=== PATIENT | male | born 1950 | race Caucasian/White ===

== ENCOUNTER 2018-12-12 12:31 | Emergency (ER) | payer MEDICARE ==
[~2018-12-12] VITALS: Ht 172.7 cm; Wt 90.0 kg
[2018-12-12] MEDS ORDERED: LISINOP/HCTZ1 TA2 PO (12:57)
[2018-12-12] MEDS ORDERED: METFORMIN HCL1000 MG PO (12:57)
[2018-12-12] MEDS ORDERED: GLIPIZIDE ER5 M1 PO (12:57)
[2018-12-12 14:10] VITALS: BP 129/74
== END 2018-12-12 14:10 | disposition home or self-care (01) ==
LOC: ED 12:31
DX: S20.212A Contusion of left front wall of thorax, initial encounter (principal); R07.81 Pleurodynia; R05 Cough; W01.198A Fall on same level from slipping, tripping and stumbling with subsequent striking against other object, initial encounter; Y93.K1 Activity, walking an animal; Y92.009 Unspecified place in unspecified non-institutional (private) residence as the place of occurrence of the external cause